=== PATIENT | female | born 1970 | race African-American/Black ===

== ENCOUNTER 2019-06-01 18:20 | Emergency (ER) | payer OTHER ==
[~2019-06-01] VITALS: Ht 162.6 cm; Wt 59.0 kg
[~2019-06-01 18:20] MED LIST: AMOXICILLIN 50500 MG PO; IBUPROFEN 600600 M1 PO; NAPROSYN500 MG PO; NOHOMEMEDICATIONS; NORCO 5-325 TA1 EACH PO; PERCOCET 5-3251 EACH PO; TESSALON PERLE100 MG PO; VENTOLIN HFA 1818 GM INH; ZOFRAN ODT4 MG PO; ZOFRAN ODT8 MG PO
[2019-06-01 19:31] VITALS: BP 101/74
[2019-06-01] MEDS ORDERED: PROAIR HFA8.5 GM INH (19:39)
[2019-06-01] MEDS ORDERED: ALBUTEROL2.5 MG/0.5 INH (19:39)
[2019-06-01] MEDS ORDERED: TAMIFLU75 MG PO (19:39)
[2019-06-01] MEDS ORDERED: PREDNISONE 20 M20 M1 PO (19:42)
== END 2019-06-01 19:59 | disposition home or self-care (01) ==
LOC: ER 18:20
DX: J44.1 Chronic obstructive pulmonary disease with (acute) exacerbation (principal); J11.1 Influenza due to unidentified influenza virus with other respiratory manifestations; F17.210 Nicotine dependence, cigarettes, uncomplicated; Z88.4 Allergy status to anesthetic agent; Z88.5 Allergy status to narcotic agent; Z88.8 Allergy status to other drugs, medicaments and biological substances; Z98.890 Other specified postprocedural states

== ENCOUNTER 2019-07-16 12:00 | Inpatient (IN) | payer OTHER ==
[~2019-07-16] VITALS: Ht 167.6 cm; Wt 65.8 kg
[~2019-07-16 12:00] MED LIST changes: +ALBUTEROL2.5 MG/0.5 INH; +PREDNISONE 20 M20 M1 PO; +PROAIR HFA8.5 GM INH; +TAMIFLU75 MG PO
[2019-07-16 12:24] VITALS: BP 126/79
[2019-07-16 13:11] LABS: ABSOLUTE NEUTROPHILS 3.8 thou/uL (1.4-8.2); BASOPHILS 0.5 % (0.0-2.0); HEMATOCRIT 40.1 % (37.0-47.0); HEMOGLOBIN 13.1 gm/dL (12.0-15.0); LYMPHOCYTES 11.6 % (24.0-44.0); MCH 30.9 pg (26.0-34.0); MCHC 32.7 g/dL (28.0-37.0); MCV 94.3 fL (80.0-100.0); MONOCYTES 4.9 % (1.0-8.0); PLATELET COUNT 247 thou/uL (150-400); RBC 4.25 mil/uL (4.20-5.00); RDW 13.4 % (10.5-14.5); WBC 4.6 thou/uL (4.0-11.0)
[2019-07-16 13:29] LABS: ANION GAP 7 mmol/L (7-16); BUN 7 mg/dL (7-18); CALCIUM 10.2 mg/dL (8.5-10.1); CHLORIDE 101 mmol/L (98-107); CO2 24 mmol/L (21-32); CREATININE 0.7 mg/dL (0.6-1.0); GLUCOSE 124 mg/dL (74-106); POTASSIUM 4.3 mmol/L (3.5-5.1); SODIUM 132 mmol/L (136-145)
[2019-07-16 13:34] LABS: LIPASE 55 U/L (73-393); SGOT 24 U/L (15-37); SGPT 22 U/L (30-65); TOTAL BILIRUBIN 0.6 mg/dL (<0.1-1.0); TOTAL PROTEIN 8.2 g/dL (6.4-8.2); TROPONIN-I <0.06 ng/mL (<0.06)
[2019-07-16 14:01] LABS: URINE BILIRUBIN NEGATIVE (Negative); URINE BLOOD NEGATIVE (Negative); URINE CLARITY CLEAR; URINE COLOR YELLOW; URINE GLUCOSE-RANDOM* NEGATIVE (Negative); URINE KETONES NEGATIVE (Negative); URINE LEUKOCYTES-REFLEX NEGATIVE (Negative); URINE NITRITE-REFLEX NEGATIVE (Negative); URINE PROTEIN (DIPSTICK) NEGATIVE (Negative); URINE UROBILINOGEN 0.2 E.U./dl (0.2-1.0)
--- NOTE | 2019-07-16 15:54 | EKG ---
[facility] [place] [address] ELECTROCARDIOGRAM REPORT Name: CLAUDIA CONTRERAS Room #: REG [facility]#: [id number] Admission: 07/16/19 Attend Phys: Discharge: Date of : 72 Report #: [id number] THIS REPORT FOR: cc: NO FAMILY PHYSICIAN or PCP FAM - No family physician/PCP Jaylan Arias MD [facility] ~ THIS REPORT FOR: //name// [facility] ED Test Date: 2019-07-16 Test Time: 12:47:26 Pat Name: CLAUDIA CONTRERAS Department: Room: Gender: F Agricultural Mechanic: mart : 1970 Requested By: Cody Baires Order Number: [id number] MD: Jaylan Arias Measurements Intervals [place] Rate: 66 P: 86 [place]: 148 QRS: 77 QRSD: 86 T: 70 QT: 415 QTc: 435 Interpretive Statements Sinus rhythm No significant abnormality Compared to ECG 03/22/2016 04:54:20 No significant changes Electronically Signed On 07-16-2019 15:52:54 CDT by Jaylan Arias [email or web address] <ELECTRONICALLY SIGNED> By: Jaylan Arias MD, FAC 07/16/19 1552 [id number] Jaylan Arias MD, [facility] /EPI
[2019-07-16 18:03] VITALS: BP 134/81
[2019-07-16 18:12] LABS: AMP/METHAMP Negative (Negative); BARBITURATES Negative (Negative); BENZODIAZEPINES Negative (Negative); COCAINE POSITIVE (Negative); METHADONE Negative (Negative); OPIATES Negative (Negative); PCP Negative (Negative)
[2019-07-16 18:37] VITALS: BP 151/84
[2019-07-16 18:44] VITALS: BP 135/81
[2019-07-16 20:15] VITALS: BP 149/70
[2019-07-16] MEDS ORDERED: ACETAMINOPHEN500 M1 PO (20:19)
[2019-07-17 03:15] VITALS: BP 143/71
--- NOTE | 2019-07-17 05:24 | NUR ---
PT AOX4, LETHARGIC. PT REPORTS PAIN IN ABDOMEN AND GENERALIZED THROUGHOUT BODY. PT NOTED TO HAVE X4 EPISODES OF N/V WITH GREEN AND YELLOW EMESIS. PT RECEIVING PRN IV ZOFRAN Q4HR. PT UNABLE TO TOLERATE PO INTAKE OF FLUIDS, TOLERATING PO INTAKE OF ICE CHIPS. PT UNABLE TO TAKE PO MEDS WITH WATER. RECEIVED ORDER FOR X1 DOSE OF IV FENTANYL. PT CONTINUES TO REST IN BED THROUGHOUT SHIFT, ABLE TO REPOSITION INDEPENDENTLY. ENCOURAGED PT TO NOTIFY STAFF FOR ALL NEEDS AND CONCERNS. CALL LIGHT WITHIN REACH, BED ALARM ON, BED IN LOWEST POSITION. WILL CONTINUE TO MONITOR.
[2019-07-17 08:22] VITALS: BP 101/75
[2019-07-17] MEDS ORDERED: ZOFRAN ODT4 MG DISSOLVE (12:53)
--- NOTE | 2019-07-17 13:50 | NUR ---
PT ADMITTED RELATED TO N/V. CM REVIEWED CHART AND SPOKE WITH CARE TEAM. CM MET WITH PT AT BEDSIDE THIS DAY. PT IS A&O X4. CM ROLE INTRODUCED. PT INDICATED SHE LIVES IN A HOUSE WITH HER STR AND GRANDBABY. PT INDICATED SHE HAD BEEN INDEPEDNENT WITH GA[employer] AND [employer]. PT INDICATED NO PCP. CM OFFERED [facility] [facility]. PT INDICATED SHE PLANS TO RETURN HOME ONCE MEDICALLY STABLE. CARE TEAM INDICATED THAT PT IS MEDICALLY STABLE TO DC HOME THIS DAY. NO OTHER CM INTERVENTION INDICATED. CASE CLOSED.
[2019-07-17 16:14] VITALS: BP 177/103
--- NOTE | 2019-07-17 17:46 | NUR ---
PT ASSESSED AT START OF SHIFT. CONTINUES TO C/O NAUSEA AND SPITTING UP SOME WHEN TRIES TO TAKE ORAL INTAKE. C/O ABD PAIN BUT REFUSES TO TAKE ORAL PAIN MED FOR FEAR OF INCREASED ABD PAIN. NAUSEA HELPED SOME W/ IV ZOFRAN BUT NOT ABLE TO TAKE PO W/O INCREASED NAUSEA AND SPITTING UP. UPDATED PHYSICIAN W/ PT CONDITION RE PENDING DISCHARGE.
[2019-07-17 19:17] VITALS: BP 171/75
--- NOTE | 2019-07-18 02:20 | NUR ---
ASSUMED PT CARE AT 1900. PT WAS IN SEVERE PAIN, REPORTING NAUSEA. PO PAIN MEDS GIVEN. PT REQUESTED TO TAKE A SHOWER - FOLLOWING SHOWER PT REPORTS FEELING MUCH BETTER. ABDOMINAL PAIN IS RESOLVED, NO MORE NAUSEA. PT ATE A SANDWICH, TOLERATED WELL. FLUIDS INFUSING PER ORDER. SLEEPING IN BED WITH CALL LIGHT IN REACH, READY TO GO HOME TODAY.
[2019-07-18 05:05] VITALS: BP 139/78
[2019-07-18 07:51] VITALS: BP 137/86
[2019-07-18 15:14] VITALS: BP 137/86
[2019-07-18] MEDS ORDERED: REGLAN 5 MG TAB5 MG PO (15:30)
[2019-07-18] MEDS ORDERED: PROTONIX40 M2 PO (15:30)
--- NOTE | 2019-07-18 15:37 | NUR ---
PT HADN'T DISCHARGED HOME YESTERDAY CARE TEAM INDICATED PT WAS STILL HAVING N/V. PHYSICIAN INDICATED THAT PT IS TO DC HOME WITH NO NEEDS THIS DAY. NO OTHER CM INTERVENTION INDICATED. CASE CLOSED.
--- NOTE | 2019-07-18 15:38 | NUR ---
PT CARE ASSUMED AT 0700. A&Ox4. PT IS BECOMING MORE AND MORE AGGRAVATED ABOOUT HER CARE. SHE VOMITTED AFTER BREAKFAST, MD AWARE. PT EXAMED AND DISCHARGED BY MD TO FOLLOW UP WITH PCP. PT THINKS THAT WE ARE DISCHARGING HER WITHOUT GIVING HER THE PROPER TREATMENT. IV REMOVED WITH NO REDNESS OR EDEMA. PT THINKS SHE IS VOMITTING FROM THE IV FLUIDS THAT WE ARE GIVING HER. CALL LIGHT IN REACH.
== END 2019-07-18 16:46 | disposition home or self-care (01) | DRG 641 ==
LOC: ER 12:00 → 4S 17:54 → EROBS 17:54 → 4S 17:54
PROVIDERS: Emergency Medicine; Physician Assistant; ADMIT Hospitalist
DX: E86.0 Dehydration (principal); E87.1 Hypo-osmolality and hyponatremia; F19.10 Other psychoactive substance abuse, uncomplicated; E83.52 Hypercalcemia; Z79.899 Other long term (current) drug therapy; Z88.6 Allergy status to analgesic agent; Z23 Encounter for immunization
CPT/HCPCS: 10195